=== PATIENT | male | born 1960 | race Caucasian/White ===

== ENCOUNTER 2021-09-05 15:57 | Emergency (ER) | payer OTHER ==
[2021-09-05 16:17] VITALS: BP 110/64; PULSE 74; RESP 18; TEMP 98.2; BMI 24.4
[2021-09-05] MEDS ORDERED: SODIUM CHLORIDE 0.9% 500 ML INFUS.BAG IV ONE (17:54)
[2021-09-05 18:18] LABS: BASO % 0.3 % (0-2.0); EOS % 0.5 % (0-4.5); HEMATOCRIT 40.2 % (35.4-49); HEMOGLOBIN 13.1 GM/dL (11.7-16.9); LYMPH % 18.5 % (8-40); MCH 27.3 pg (25.7-33.7); MCHC 32.7 g/dl (32.0-35.9); MEAN CELL VOLUME 83.7 fl (80-96); MONO % 9.4 % (3.8-10.2); NEUT % 71.3 % (42.8-82.8); PLATELET COUNT 269 10^3/uL (134-434); RDW 13.7 % (11.9-15.9); WHITE BLOOD COUNT 7.2 K/mm3 (4.0-10.0)
[2021-09-05 18:38] LABS: INR 1.06 (0.83-1.09); PROTHROMBIN TIME (PATIENT) 12.2 SEC (9.7-13.0)
[2021-09-05 18:39] LABS: ALBUMIN 4.1 g/dl (3.4-5.0); BLOOD UREA NITROGEN 14.4 mg/dL (7-18)
[2021-09-05 18:41] LABS: ACTIVATED PTT 27.1 SECONDS (25.2-36.5)
[2021-09-05 18:42] LABS: CREATININE 1.3 mg/dL (0.55-1.3)
[2021-09-05 18:43] LABS: TOT PROT 7.6 g/dl (6.4-8.2)
[2021-09-05 18:44] LABS: BILIRUBIN,TOTAL 0.7 mg/dL (0.2-1)
== END 2021-09-05 21:46 | disposition home or self-care (01) ==
LOC: JER 15:57
DX: R55 Syncope and collapse (principal); L03.115 Cellulitis of right lower limb
CPT/HCPCS: 36415; 71045-TC-FY; 80053; 84484; 85025; 85610; 85730; 86850; 86900; 86901; 87040; 93005; 93010; 93971-TC; 96374; 99285-25; C9803-CS; U0003; U0005

== ENCOUNTER 2022-05-05 09:10 | Emergency (ER) | payer OTHER ==
[2022-05-05 09:52] VITALS: BP 161/83; PULSE 71; RESP 18; TEMP 97.6; BMI 23.3
[2022-05-05] MEDS ORDERED: ACETAMINOPHEN 500 MG TABLET (FP) PO ONE (10:08)
[2022-05-05] MEDS ORDERED: CYCLOBENZAPRINE HCL 10 MG TABLET (FP) PO ONE (10:08)
[2022-05-05] MEDS ORDERED: CYCLOBENZAPRINE HCL 10 MG TABLET (FP) ONE (10:13)
[2022-05-05] MEDS ORDERED: ACETAMINOPHEN 500 MG TABLET (FP) ONE (10:13)
== END 2022-05-05 11:13 | disposition home or self-care (01) ==
LOC: JERFT 09:10 → MERGE 09:10 → JERFT 11:13
DX: M25.511 Pain in right shoulder (principal); W01.0XXA Fall on same level from slipping, tripping and stumbling without subsequent striking against object, initial encounter
CPT/HCPCS: 73030-TC-RT-FY; 99283-25

== ENCOUNTER 2022-06-29 03:46 | Day surgery (SDC) | payer OTHER ==
[2022-06-26 09:59] VITALS: BMI 23.7
[2022-06-29] MEDS ORDERED: MIDAZOLAM HCL 2 MG/2 ML SINGLE DOSE VIAL ONE (10:00)
[2022-06-29] MEDS ORDERED: ONDANSETRON 4 MG/2 ML VIAL ONE (10:35)
[2022-06-29] MEDS ORDERED: KETOROLAC TROMETHAMINE 30 MG/1 ML VIAL ONE (10:35)
[2022-06-29 14:26] VITALS: RESP 18
[2022-06-29 14:31] VITALS: BP 132/79; PULSE 64; TEMP 97.9
== END 2022-06-29 12:48 | disposition home or self-care (01) ==
LOC: JASU-SURG 03:46
PROVIDERS: ATTEND Urology
PROC: 0TF4XZZ Fragmentation in Left Kidney Pelvis, External Approach (ICD-10-PCS; principal; 2022-06-29 09:30)
DX: N20.0 Calculus of kidney (principal)

== ENCOUNTER 2023-11-08 14:07 | Emergency (ER) | payer OTHER ==
[2023-11-08 14:51] VITALS: BMI 27.1
[2023-11-08 16:49] LABS: BASO % 0.5 % (0-2.0); EOS % 2.5 % (0-4.5); HEMATOCRIT 39.1 % (35.4-49); LYMPH % 21.8 % (8-40); MCH 27.4 pg (25.7-33.7); MCHC 33.4 g/dl (32.0-35.9); MEAN CELL VOLUME 82.1 fl (80-96); MEAN PLT VOLUME 7.6 fl (7.5-11.1); MONO % 17.2 % (3.8-10.2); PLATELET COUNT 236 10^3/uL (134-434); RBC 4.76 M/mm3 (4.00-5.60); RDW 13.6 % (11.9-15.9); WHITE BLOOD COUNT 4.8 K/mm3 (4.0-10.0)
[2023-11-08 17:06] LABS: POTASSIUM 4.1 mmol/L (3.5-5.1)
[2023-11-08 17:08] LABS: CALCIUM 9.1 mg/dL (8.5-10.1)
[2023-11-08 17:09] LABS: ALBUMIN 3.8 g/dl (3.4-5.0)
[2023-11-08 17:12] LABS: CREATININE 1.1 mg/dL (0.55-1.3)
[2023-11-08 17:13] LABS: BILIRUBIN,TOTAL 0.7 mg/dL (0.2-1); TOT PROT 7.1 g/dl (6.4-8.2)
[2023-11-08 18:09] LABS: HIV INTERPRETATION NEGATIVE (NEGATIVE)
[2023-11-08 20:27] VITALS: BP 122/78; PULSE 72; RESP 19; TEMP 97.8
== END 2023-11-08 20:28 | disposition home or self-care (01) ==
LOC: JER 14:07
DX: I73.9 Peripheral vascular disease, unspecified (principal); M79.604 Pain in right leg
CPT/HCPCS: 36415; 73590-TC-RT-FY; 80053; 85025; 85651; 86140; 86803; 87389; 93005; 93010; 99285-25